=== PATIENT | female | born 1955 | race Caucasian/White ===

== ENCOUNTER 2020-12-18 20:38 | Emergency (ER) | payer MEDICAID ==
[~2020-12-18] VITALS: Ht 165.1 cm; Wt 108.9 kg
--- NOTE | 2020-12-18 20:55 | NUR ---
PT SENT FROM URGENT CARE C/O R LEG PAIN, BRUISING AND SWELLING. PT HAD A FALL LAST 12/07/19. PT AAOX4, RESPIRATIONS EVEN AND UNLABORED ON RA W/ NAD NOTED. PT CONNECTED TO THE MONITOR AND POX
--- NOTE | 2020-12-18 21:00 | NUR ---
DR SANTANA AT BEDSIDE EVAL
--- NOTE | 2020-12-18 21:05 | NUR ---
US TECH AT BED SIDE
--- NOTE | 2020-12-18 21:10 | NUR ---
RECTANGULAR TANK COOPER AT BEDSIDE FOR BLOOD DRAW
[2020-12-18] MEDS ORDERED: CLONIDINE HCL 0.1 MG TABLET ONE (21:29)
[2020-12-18] MEDS: CLONIDINE HCL 0.1 MG TABLET PO ONE (21:33)
[2020-12-18 21:37] LABS: BASOPHILS # (AUTO) 0.1 /CMM (0.0-0.2); BASOPHILS % (AUTO) 1.2 % (0.0-2.0); EOSINOPHILS % (AUTO) 2.6 % (0.0-6.0); HEMATOCRIT 37 % (33-45); HEMOGLOBIN 12.5 g/dL (11.5-14.8); LYMPHOCYTES # (AUTO) 2.5 /CMM (0.8-4.8); LYMPHOCYTES % (AUTO) 25.1 % (20.0-44.0); MEAN CORPUSCULAR HGB CONC 34 g/dl (31.0-36.0); MEAN CORPUSCULAR VOLUME 92 fL (82-100); MONOCYTES # (AUTO) 0.8 /CMM (0.1-1.30); MONOCYTES % (AUTO) 7.8 % (2.0-12.0); NEUTROPHILS # (AUTO) 6.3 /CMM (1.8-8.9); NEUTROPHILS % (AUTO) 63.3 % (43.0-81.0); PLATELET COUNT (AUTO) 500 /CMM (150-450); WHITE BLOOD COUNT (AUTO) 9.9 K/uL (4.3-11.0)
[2020-12-18 21:48] LABS: CALCIUM, SERUM 9.3 mg/dL (8.5-10.1); CARBON DIOXIDE 26 mmol/L (21-32); CHLORIDE 105 mmol/L (98-107); CREATININE 0.8 mg/dL (0.6-1.3); GLUCOSE 119 mg/dL (74-106); POTASSIUM 4.7 mmol/L (3.5-5.1); SODIUM SERUM 139 mmol/L (136-145); UREA NITROGEN, BLOOD 25 mg/dL (7-18)
[2020-12-18] MEDS ORDERED: VANCOMYCIN 1.5 GM in IV D5W 500 ML IV ONE (22:00)
[2020-12-18] MEDS ORDERED: VANCOMYCIN 500 MG VIAL ONE ×2 (22:06)
[2020-12-18 22:09] LABS: CREATINE KINASE, TOTAL 92 U/L (26-192)
[2020-12-18] MEDS ORDERED: LIDOCAINE /MPF 1% VIAL 5 ML VIAL ONE (22:36)
[2020-12-18] MEDS ORDERED: CEFTRIAXONE 1 G VIAL ONE (22:37)
[2020-12-18] MEDS ORDERED: CEPH-570 PO (22:40)
[2020-12-18] MEDS ORDERED: AMLO5TAB4 PO (22:40)
[2020-12-18] MEDS: CEFTRIAXONE 1 G VIAL IM ONE (22:57)
--- NOTE | 2020-12-18 22:57 | NUR ---
Patient discharged to home in stable condition. Written and verbal after care instructions given. Patient verbalizes understanding of instruction.pt. ambulatory with a steady gait
[2020-12-18 22:59] VITALS: BP 163/93
== END 2020-12-18 23:00 | disposition home or self-care (01) ==
LOC: ER 20:43
DX: S80.11XA Contusion of right lower leg, initial encounter (principal); L03.115 Cellulitis of right lower limb; R22.41 Localized swelling, mass and lump, right lower limb; I10 Essential (primary) hypertension; E03.9 Hypothyroidism, unspecified; F32.9 Major depressive disorder, single episode, unspecified; Z98.890 Other specified postprocedural states; Z60.2 Problems related to living alone; Z79.899 Other long term (current) drug therapy; W01.0XXA Fall on same level from slipping, tripping and stumbling without subsequent striking against object, initial encounter; Y93.89 Activity, other specified; Y92.89 Other specified places as the place of occurrence of the external cause; Y99.8 Other external cause status
CPT/HCPCS: 36415; 71045; 73590; 80048; 82550; 84484; 85025; 85610; 85730; 93005; 93971; 96372; 99285; J0696; J3370 ×2; J3490

== ENCOUNTER 2022-02-11 10:18 | Inpatient (IN) | payer OTHER ==
[~2022-02-11] VITALS: Ht 152.4 cm; Wt 112.0 kg
[~2022-02-11 10:18] MED LIST: AMLO5TAB4 PO; CEPH-570 PO
--- NOTE | 2022-02-11 10:28 | NUR ---
ISABEL Powell FROM [facility] C/O LOWER BACK PAIN. HAD BACK SURGERY LAST JANUARY 25. "THEY DISCHARGED ME TOO EARLY, PAIN IS NOT BETTER". DX: SPINAL STENOSIS. TO ER BED 11, HOOKED TO MONITOR, CHANGED TO HOSP GOWN, WARM BLANKET PROVIDED. AWAITING MD CRANDALL
--- NOTE | 2022-02-11 11:32 | NUR ---
DR CRAWLEY AT BEDSIDE
[2022-02-11] MEDS ORDERED: HYDROMORPHONE 1 MG/1 ML DISP.SYRIN ONE (11:41)
[2022-02-11] MEDS ORDERED: HYDROMORPHONE 1 MG/1 ML DISP.SYRIN IV ONE (12:00)
--- NOTE | 2022-02-11 12:00 | NUR ---
MOVE SHEET SUBMITTED AND CALLED FOR BED.
[2022-02-11] MEDS ORDERED: ASCO500C17 PO (12:13)
[2022-02-11] MEDS ORDERED: PUMP300C PO (12:13)
[2022-02-11] MEDS ORDERED: SENN-175 PO (12:13)
[2022-02-11] MEDS ORDERED: ASPI-1169 PO (12:13)
[2022-02-11] MEDS ORDERED: POLY17PO4 PO (12:13)
[2022-02-11] MEDS ORDERED: TIZA4TAB5 PO (12:13)
[2022-02-11] MEDS ORDERED: HYDR4TAB4 PO (12:13)
[2022-02-11] MEDS ORDERED: DOCU-141 PO (12:13)
[2022-02-11] MEDS ORDERED: METH-647 PO (12:13)
[2022-02-11] MEDS ORDERED: HYDR12.55 PO (12:13)
[2022-02-11] MEDS ORDERED: MORP15TA60 PO (12:13)
[2022-02-11] MEDS ORDERED: ZOLP5TAB2 PO (12:13)
[2022-02-11] MEDS ORDERED: CHOL200013 PO (12:13)
[2022-02-11] MEDS ORDERED: FERR325T23 PO (12:13)
[2022-02-11] MEDS ORDERED: CELE100C PO (12:13)
[2022-02-11] MEDS ORDERED: VOLTAREN GEL TD (12:13)
[2022-02-11 12:21] LABS: BASOPHILS # (AUTO) 0.1 K/uL (0.0-0.2); EOSINOPHILS % (AUTO) 1.2 % (0.0-6.0); HEMATOCRIT 34 % (33-45); HEMOGLOBIN 11.5 g/dL (11.5-14.8); LYMPHOCYTES # (AUTO) 3.7 K/uL (0.8-4.8); LYMPHOCYTES % (AUTO) 31.8 % (20.0-44.0); MEAN CORPUSCULAR HGB CONC 34 g/dl (31.0-36.0); MEAN CORPUSCULAR VOLUME 90 fL (82-100); MONOCYTES # (AUTO) 1.1 K/uL (0.1-1.30); MONOCYTES % (AUTO) 9.8 % (2.0-12.0); NEUTROPHILS # (AUTO) 6.5 K/uL (1.8-8.9); NEUTROPHILS % (AUTO) 56.2 % (43.0-81.0); PLATELET COUNT (AUTO) 849 K/uL (150-450); RED BLOOD CELL COUNT(AUTO) 3.79 MIL/uL (4.0-5.2); WHITE BLOOD COUNT (AUTO) 11.6 K/uL (4.3-11.0)
[2022-02-11 12:36] LABS: CALCIUM, SERUM 9.2 mg/dL (8.5-10.1); CREATININE 0.7 mg/dL (0.6-1.3); POTASSIUM 3.6 mmol/L (3.5-5.1)
--- NOTE | 2022-02-11 13:10 | NUR ---
[facility] CALLED [facility].
--- NOTE | 2022-02-11 13:30 | NUR ---
RN NOTE UPON ENTERING ROOM, PATIENT WAS FOUND SITTING ON THE FLOOR. PT STATES SHE WAS LOOKING FOR HER GROUP CONTROLLER THAT WAS PLUGGED IN THE WALL AND SHE SOMEHOW FELL. PT DENIES SHE HIT HER HEAD. NEURO CHECK DONE. SKIN ASSESSMENT DONE. EDUCATED PATIENT TO REMAIN IN BED AND TO USE CALL LIGHT WHEN NEEDED. CHARGE NURSE, ROSA AND DR. MONIQUE MADE AWARE.
--- NOTE | 2022-02-11 13:50 | NUR ---
ROOM 316-1
[2022-02-11] MEDS ORDERED: LORAZEPAM INJ 2 MG/ML VIAL IV ONE (14:00)
[2022-02-11] MEDS ORDERED: LORAZEPAM INJ 2 MG/ML VIAL ONE (14:00)
--- NOTE | 2022-02-11 14:28 | NUR ---
REPORT GIVEN TO RAMIRO WATSON OF [facility]
[2022-02-11] MEDS ORDERED: ACETAMINOPHEN 325 MG TABLET PO PRN (14:30)
[2022-02-11] MEDS ORDERED: ZOLPIDEM TARTRATE 5 MG TABLET PO PRN (14:30)
[2022-02-11] MEDS ORDERED: MAG HYDROX/AL HYDROX/SIMETH 30 ML UDC PO PRN (14:30)
[2022-02-11] MEDS ORDERED: Z GUARD REMEDY 4 OZ OINT TP PRN (14:30)
[2022-02-11] MEDS ORDERED: MAGNESIUM HYDROXIDE 30 ML UDC PO PRN (14:30)
--- NOTE | 2022-02-11 14:30 | NUR ---
MS FLOOR MANAGER NOTES RECEIVED PATIENT FROM ER, REPORT RECEIVED FROM [facility]. PT A/O X 4. NO S/SX OF DISTRESS NOTED. NO SOB. PT C/O OF LEFT LEG PAIN /. PT ON ROOM AIR, TOLERATING WELL. ORIENTED PT TO UNIT, STAFF AND CALL LIGHT. SAFETY MEASURES IN PLACE WITH BED LOCKED AT LOW POSITION, SIDE RAILS UP X 2. CALL LIGHT WITHIN REACH. WILL CONTINUE TO MONITOR PATIENT THROUGHOUT SHIFT.
[2022-02-11 16:00] VITALS: BP 142/67
[2022-02-11] MEDS: METHOCARBAMOL (500MG) 500 MG TABLET PO SCH (18:05)
[2022-02-11] MEDS: MORPHINE SULFATE SR 15 MG TABLET.SA PO SCH (18:05)
[2022-02-11] MEDS: CELECOXIB 100 MG CAPSULE PO SCH (18:05)
[2022-02-11] MEDS: DOCUSATE SODIUM 250 MG CAPSULE PO SCH (18:05)
--- NOTE | 2022-02-11 19:02 | NUR ---
MS RN CLOSING NOTES PT IS BED RESTING COMFORTABLY. PT A/O X 4. NO S/SX OF DISTRESS NOTED. ON ROOM AIR, TOLERATING WELL. NO SOB. NO S/SX OF ACUTE DISTRESS NOTED. IV ACCESS LAC#20 PATENT AND INTACT. SAFETY MEASURES IN PLACE WITH BED LOCKED AT LOW POSITION, SIDE RAILS UP X 2. CALL LIGHT WITHIN REACH. WILL ENDORSE CONTINUITY OF CARE TO ONCOMING SHIFT.
[2022-02-11 20:00] VITALS: BP 137/85
[2022-02-11] MEDS: HYDROMORPHONE 1 MG/1 ML DISP.SYRIN IV PRN (20:31)
--- NOTE | 2022-02-11 20:43 | NUR ---
MS/BRET/RN DILAUDID 1 MG IV WAS GIVEN FOR C/O PAIN 06/30. PATIENT ALSO REQUESTED TO HAVE HER DRESSINGS CHANGED. DRESSING AT LOWER BACK AND RIGHT HIP ARE NOT INTACT. REMOVED THE DRESSING, CLEANSED THE HEALING SURGICAL WOUND WITH NS AND COVERED WITH SURGICAL DRESSING. WILL MONITOR PATIENT.
[2022-02-11] MEDS: SENNOSIDES 8.6 MG TABLET PO SCH (21:30)
[2022-02-11] MEDS: TIZANIDINE HCL 4 MG TABLET PO SCH (21:31)
[2022-02-12] MEDS: ZOLPIDEM TARTRATE 5 MG TABLET PO PRN ×2 (00:06→23:41)
--- NOTE | 2022-02-12 02:02 | NUR ---
MS/TELE/RN PATIENT IS SLEEPING AT THIS TIME, APPEAR COMFORTABLE, NO SIGNS OF DISTRESS NOTED, CALL LIGHT IN REACH, WILL CONTINUE TO MONITOR.
[2022-02-12] MEDS: HYDROMORPHONE 1 MG/1 ML DISP.SYRIN IV PRN ×5 (06:44→23:12)
--- NOTE | 2022-02-12 06:50 | NUR ---
MS/TELE/RN PATIENT IS AWAKE, C/O PAIN RIGHT HIP 06/30, MEDICATED WITH DILAUDID 1 MG IVP ORDERED. PATIENT IS AWAKE, ALERT AND ORIENTED, ALL NEEDS ATTENDED AT THIS TIME, WILL CONTINUE TO MONITOR.
--- NOTE | 2022-02-12 07:20 | NUR ---
RN OPENING NOTE- MS RN CLOSING NOTES PT IS IN BED RESTING COMFORTABLY. RECENTLY MEDICATED WITH ANALGESICS FOR CONTINUING BACK PAIN. PT A/O X 4. NO S/SX OF DISTRESS NOTED. ON ROOM AIR, TOLERATING WELL. NO SOB. NO S/SX OF ACUTE DISTRESS NOTED. IV ACCESS LAC#20. SAFETY MEASURES IN PLACE WITH BED LOCKED AT LOW POSITION, SIDE RAILS UP X 2. CALL LIGHT WITHIN REACH. MONITOR / ASSIST.
[2022-02-12 07:30] LABS: BASOPHILS # (AUTO) 0.1 K/uL (0.0-0.2); BASOPHILS % (AUTO) 0.8 % (0.0-2.0); EOSINOPHILS % (AUTO) 3.4 % (0.0-6.0); HEMATOCRIT 31 % (33-45); HEMOGLOBIN 10.5 g/dL (11.5-14.8); LYMPHOCYTES # (AUTO) 3.8 K/uL (0.8-4.8); LYMPHOCYTES % (AUTO) 40.6 % (20.0-44.0); MEAN CORPUSCULAR HGB CONC 34 g/dl (31.0-36.0); MEAN CORPUSCULAR VOLUME 90 fL (82-100); MONOCYTES # (AUTO) 0.8 K/uL (0.1-1.30); MONOCYTES % (AUTO) 8.8 % (2.0-12.0); NEUTROPHILS # (AUTO) 4.3 K/uL (1.8-8.9); NEUTROPHILS % (AUTO) 46.4 % (43.0-81.0); PLATELET COUNT (AUTO) 748 K/uL (150-450); RED BLOOD CELL COUNT(AUTO) 3.43 MIL/uL (4.0-5.2); WHITE BLOOD COUNT (AUTO) 9.3 K/uL (4.3-11.0)
[2022-02-12 08:09] VITALS: BP 120/64
[2022-02-12] MEDS: POLYETHYLENE GLYCOL 3350 17 GM POWD.PACK PO SCH (08:27)
[2022-02-12] MEDS: DOCUSATE SODIUM 250 MG CAPSULE PO SCH ×2 (08:27→16:46)
[2022-02-12] MEDS: AMLODIPINE BESYLATE 5 MG TABLET PO SCH (08:27)
[2022-02-12] MEDS: ASPIRIN 81 MG TAB.CHEW PO SCH (08:27)
[2022-02-12] MEDS: FERROUS SULFATE (325 MG) 325 MG/TAB TABLET PO SCH (08:27)
[2022-02-12] MEDS: METHOCARBAMOL (500MG) 500 MG TABLET PO SCH ×3 (08:28→16:46)
[2022-02-12] MEDS: HYDROCHLOROTHIAZIDE 25 MG TABLET PO SCH (08:28)
[2022-02-12] MEDS: CELECOXIB 100 MG CAPSULE PO SCH ×2 (08:28→16:46)
[2022-02-12] MEDS: MORPHINE SULFATE SR 15 MG TABLET.SA PO SCH ×2 (08:28→16:45)
[2022-02-12 08:46] LABS: CREATININE 0.7 mg/dL (0.6-1.3); MAGNESIUM 2.6 mg/dL (1.8-2.4); PHOSPHORUS 4.6 mg/dL (2.5-4.9); POTASSIUM 3.7 mmol/L (3.5-5.1)
[2022-02-12] MEDS ORDERED: Medication Not On Formulary EA (Hydrochlorothiazide 12.5 MG) PO SCH (09:00)
[2022-02-12] MEDS: DICLOFENAC SODIUM 25 MG TABLET.DR PO SCH ×2 (12:30→16:45)
[2022-02-12 15:47] VITALS: BP 117/72
--- NOTE | 2022-02-12 18:34 | NUR ---
RN CLOSING NOTE- PT IS IN BED RESTING THOUGH PERIODS OF PAIN TO LOWER BACK AND HIPS. ANALGESICS FOR CONTINUING BACK PAIN. PAIN MD SAW PT AND CHANGED RX. PT A/O X 4. NO S/SX OF DISTRESS NOTED. ON ROOM AIR, TOLERATING WELL. NO SOB. NO S/SX OF ACUTE DISTRESS NOTED. IV ACCESS LAC#20. BSC IN USE AT BEDSIDE. SAFETY MEASURES IN PLACE WITH BED LOCKED AT LOW POSITION, SIDE RAILS UP X 2. CALL LIGHT WITHIN REACH. MONITOR / ASSIST.
--- NOTE | 2022-02-12 19:35 | NUR ---
MSRN FULLY AWAKE AND ORIENTED. VERY PLEASANT LADY. PAIN MANAGEMENT DISCUSSED WITH PATIENT, WELL UNDERSTOOD. ALLL NEEDS ATTENDED. REMINDED TO CALL STAFF FOR ANY ASSISTANCE/DISCOMFORTS, SAFETY PRECAUTION EMPHASIZED. CONTINUED.
--- NOTE | 2022-02-12 20:00 | NUR ---
MSRN VERBALIZES BACK AND HIP PAIN DILAUDED 1MG IVP ADMINISTERED, BEDREST FOR NOW INSTRUCTED.
[2022-02-12 20:05] VITALS: BP 131/79
--- NOTE | 2022-02-12 20:30 | NUR ---
MSRN ASSESSED PAIN LEVEL STATED TOLERABLE FOR NOW BRANDON WHEN NOT MOVING. CALL LIGHT WITHIN REACH. TO CONTINUE
[2022-02-12] MEDS: SENNOSIDES 8.6 MG TABLET PO SCH (21:19)
[2022-02-12] MEDS: oxyCODONE IR immediate release 5 MG PO PRN (21:19)
[2022-02-12] MEDS: TIZANIDINE HCL 4 MG TABLET PO SCH (21:19)
--- NOTE | 2022-02-12 21:20 | NUR ---
MSRN VERBALIZES BACK AND HIP PAIN INCREASING, AGREED TO TAKE OXY IR 5 MG ORDERED. OTHER DUE MEDS ADMINISTERED. ALL NEEDS MADE.
--- NOTE | 2022-02-13 06:09 | NUR ---
MSRN SLEPT WELL, KEPT COMFORTABLE. CLOSELY WATCHED
--- NOTE | 2022-02-13 08:00 | NUR ---
RN OPENING NOTE PATIENT IN BED RESTING AWAKE, A/OX4, NO S/S OF PAIN NOTED AT THIS TIME. ON ROOM AIR, NO DISTRESS OR SHORTNESS OF BREATH NOTED. IV ACCESS R AC #20, INTACT, PATENT AND FLUSHING WELL. FALL AND SAFETY MEASURES IN PLACE, BED ALARM ON. BED IN LOW AND LOCK POSITION, CALL LIGHT AND TABLE WITHIN EASY REACH, SIDE RAILS UP X2. WILL CONTINUE TO MONITOR.
[2022-02-13] MEDS: HYDROMORPHONE 1 MG/1 ML DISP.SYRIN IV PRN ×4 (08:28→21:17)
[2022-02-13] MEDS: DOCUSATE SODIUM 250 MG CAPSULE PO SCH ×2 (08:29→16:41)
[2022-02-13] MEDS: FERROUS SULFATE (325 MG) 325 MG/TAB TABLET PO SCH (08:29)
[2022-02-13] MEDS: POLYETHYLENE GLYCOL 3350 17 GM POWD.PACK PO SCH (08:29)
[2022-02-13] MEDS: ASPIRIN 81 MG TAB.CHEW PO SCH (08:29)
[2022-02-13] MEDS: GABAPENTIN 300 MG CAPSULE PO SCH ×2 (08:30→16:41)
[2022-02-13] MEDS: HYDROCHLOROTHIAZIDE 25 MG TABLET PO SCH (08:31)
[2022-02-13] MEDS: AMLODIPINE BESYLATE 5 MG TABLET PO SCH (08:31)
[2022-02-13] MEDS: CELECOXIB 100 MG CAPSULE PO SCH ×2 (08:31→16:41)
[2022-02-13] MEDS: METHOCARBAMOL (500MG) 500 MG TABLET PO SCH ×3 (08:32→16:41)
[2022-02-13 08:44] VITALS: BP 121/74
[2022-02-13] MEDS: oxyCODONE IR immediate release 5 MG PO PRN ×2 (10:43→17:59)
[2022-02-13] MEDS: ONDANSETRON HCL/PF 4 MG/2 ML VIAL IVP PRN ×2 (10:43→21:41)
[2022-02-13 16:27] VITALS: BP 117/77
--- NOTE | 2022-02-13 19:10 | NUR ---
RN CLOSING NOTE PATIENT IN BED RESTING AWAKE, A/OX4, NO S/S OF PAIN NOTED AT THIS TIME, PAIN MEDICATION GIVEN DURING THE SHIFT. ON ROOM AIR, NO DISTRESS OR SHORTNESS OF BREATH NOTED. IV ACCESS R AC #20, INTACT, PATENT AND FLUSHING WELL. ALL SCHEDULED MEDS ADMINISTERED. FALL AND SAFETY MEASURES IN PLACE, BED ALARM ON. BED IN LOW AND LOCK POSITION, CALL LIGHT AND TABLE WITHIN EASY REACH, SIDE RAILS UP X2. WILL ENDORSE TO CLINICAL SERVICES CONSULTANT.
[2022-02-13 20:00] VITALS: BP 124/75
--- NOTE | 2022-02-13 20:00 | NUR ---
rn opening note Patient is A&Ox4, comfortable in bed currently. Able to make needs known. RAC #20G IV intact and patent. No needs at this time but patient does request that pain be managed promptly throughout shift. Will continue to monitor pt.
[2022-02-13] MEDS: SENNOSIDES 8.6 MG TABLET PO SCH (21:17)
[2022-02-13] MEDS: TIZANIDINE HCL 4 MG TABLET PO SCH (21:17)
[2022-02-13] MEDS: LORAZEPAM 1 MG TABLET PO PRN (22:18)
[2022-02-14] MEDS: HYDROMORPHONE 1 MG/1 ML DISP.SYRIN IV PRN ×5 (05:37→22:34)
--- NOTE | 2022-02-14 06:06 | NUR ---
RN CLOSING NOTES Patient is A&Ox4 overnight. Slept well after PRN ativan admin. When waken pt. c/o again of R hip and lower back PRN dilaudid given as per order. Able to walk to bathroom with walker +staff assist +back brace. RAC #20G still intact and patent. Currently awake and alert resting in bed on ipad.
[2022-02-14] MEDS: oxyCODONE IR immediate release 5 MG PO PRN ×3 (06:49→19:56)
[2022-02-14] MEDS: POLYETHYLENE GLYCOL 3350 17 GM POWD.PACK PO SCH (08:20)
[2022-02-14] MEDS: ASPIRIN 81 MG TAB.CHEW PO SCH (08:21)
[2022-02-14] MEDS: FERROUS SULFATE (325 MG) 325 MG/TAB TABLET PO SCH (08:21)
[2022-02-14] MEDS: DOCUSATE SODIUM 250 MG CAPSULE PO SCH ×2 (08:21→18:09)
[2022-02-14] MEDS: GABAPENTIN 300 MG CAPSULE PO SCH ×2 (08:21→18:08)
[2022-02-14] MEDS: METHOCARBAMOL (500MG) 500 MG TABLET PO SCH ×3 (08:22→18:08)
[2022-02-14] MEDS: CELECOXIB 100 MG CAPSULE PO SCH ×2 (08:23→18:08)
[2022-02-14] MEDS: AMLODIPINE BESYLATE 5 MG TABLET PO SCH (08:23)
[2022-02-14] MEDS: HYDROCHLOROTHIAZIDE 25 MG TABLET PO SCH (08:25)
[2022-02-14 16:00] VITALS: BP 113/63
--- NOTE | 2022-02-14 19:42 | NUR ---
RN CLOSING NOTE PATIENT IN BED RESTING AWAKE, A/OX4, NO S/S OF PAIN NOTED AT THIS TIME, PAIN MEDICATION GIVEN DURING THE SHIFT. ON ROOM AIR, NO DISTRESS OR SHORTNESS OF BREATH NOTED. IV ACCESS L AC #20, INTACT, PATENT AND FLUSHING WELL. ALL SCHEDULED MEDS ADMINISTERED. FALL AND SAFETY MEASURES IN PLACE, BED ALARM ON. BED IN LOW AND LOCK POSITION, CALL LIGHT AND TABLE WITHIN EASY REACH, SIDE RAILS UP X2. WILL ENDORSE TO SUPERVISOR FINAL.
[2022-02-14 20:00] VITALS: BP 137/63
[2022-02-14] MEDS: SENNOSIDES 8.6 MG TABLET PO SCH (21:03)
[2022-02-14] MEDS: TIZANIDINE HCL 4 MG TABLET PO SCH (21:03)
[2022-02-15] MEDS: ZOLPIDEM TARTRATE 5 MG TABLET PO PRN ×2 (00:16→21:07)
[2022-02-15] MEDS: LORAZEPAM 1 MG TABLET PO PRN (02:31)
[2022-02-15] MEDS: HYDROMORPHONE 1 MG/1 ML DISP.SYRIN IV PRN ×5 (05:02→19:43)
--- NOTE | 2022-02-15 06:17 | NUR ---
RN CLOSING NOTE Patient has been A&Ox4 overnight. Sleeping intermittently. Pain managed with PRN pain meds. Up and walking short distances with walker, back brace and 1 person assist. Overall stable. Currently awake resting in bed on iPad.
--- NOTE | 2022-02-15 07:31 | NUR ---
RN OPENING NOTE PATIENT RECEIVED IN BED SLEEPING COMFORTABLE WITH HOB ELEVATED.ON ROOM AIR VIVIAN,WELL NO S/S SOB/DISTRESS NOTED. IV ACCESS R AC #20, INTACT, PATENT AND FLUSHING WELL. FALL AND SAFETY MEASURES IN PLACE.BED ALARM ON. BED IN LOW AND LOCK POSITION, CALL LIGHT WITHIN REACH.SIDE RAILS UP X2. WILL CONTINUE TO MONITOR.
[2022-02-15 08:00] VITALS: BP 106/66
[2022-02-15] MEDS: POLYETHYLENE GLYCOL 3350 17 GM POWD.PACK PO SCH (08:23)
[2022-02-15] MEDS: AMLODIPINE BESYLATE 5 MG TABLET PO SCH (08:24)
[2022-02-15] MEDS: DOCUSATE SODIUM 250 MG CAPSULE PO SCH ×2 (08:24→16:10)
[2022-02-15] MEDS: CELECOXIB 100 MG CAPSULE PO SCH ×2 (08:25→16:12)
[2022-02-15] MEDS: ASPIRIN 81 MG TAB.CHEW PO SCH (08:25)
[2022-02-15] MEDS: GABAPENTIN 300 MG CAPSULE PO SCH ×2 (08:27→16:12)
[2022-02-15] MEDS: METHOCARBAMOL (500MG) 500 MG TABLET PO SCH ×3 (08:27→16:12)
[2022-02-15] MEDS: HYDROCHLOROTHIAZIDE 25 MG TABLET PO SCH (08:27)
[2022-02-15] MEDS: FERROUS SULFATE (325 MG) 325 MG/TAB TABLET PO SCH (08:27)
--- NOTE | 2022-02-15 10:02 | NUR ---
RN NOTE IV DISLODGED, MD NOTIFIED GAVE NEW ORDER FOR MIDLINE INSERTION, MIDLINE PLACE 18 GAUGE LEFT UPPER ARM PATENT AND INTACT
[2022-02-15] MEDS: oxyCODONE IR immediate release 5 MG PO PRN ×2 (11:17→18:11)
[2022-02-15 16:00] VITALS: BP 137/74
--- NOTE | 2022-02-15 16:35 | NUR ---
SS Note: SW met with pt. to provide IHSS and Disability information.
--- NOTE | 2022-02-15 18:29 | NUR ---
RN CLOSING NOTE PATIENT IN BED RESTING AWAKE, A/OX4, NO S/S OF PAIN NOTED AT THIS TIME, PAIN MEDICATION GIVEN DURING THE SHIFT, VITALS MAINTAINED WNL. PATIENT IS BREATHING EVENLY AND NONLABORED ON ROOM AIR, NO DISTRESS OR SHORTNESS OF BREATH NOTED. IV ACCESS L AC #20, INTACT, PATENT AND FLUSHING WELL. ALL MEDICATIONS GIVEN ORDERED. FALL AND SAFETY MEASURES IN PLACE, BED ALARM ON. BED IN LOW AND LOCK POSITION, CALL LIGHT AND TABLE WITHIN EASY REACH, SIDE RAILS UP X2. WILL ENDORSE TO MANAGER [facility]EL[facility].
--- NOTE | 2022-02-15 19:30 | NUR ---
MS RN OPENING NOTES PATIENT RECEIVED RESTING IN BED, AWAKE, A/OX4, BREATHING EVEN AND UNLABORED; NO SOB NOTED AT THIS TIME; PATIENT TOLERATING ROOM AIR WELL; PATIENT REPORTING 9/10 PAIN, VS WNL; PATIENT ABLE TO MAKE NEEDS KNOWN; PATIENT AMBULATORY WITH ASSIST; PATIENT HAS MARY MIDLINE #18G INTACT AND PATENT, FLUSHING WELL; NO S/S OF REDNESS OR INFILTRATION NOTED; SAFETY PRECAUTIONS IMPLEMENTED; BED LOCKED IN LOW POSITION; SIDE RAILS UP X2; CALL LIGHT WITHIN REACH; WILL CONT TO MONITOR
[2022-02-15 20:00] VITALS: BP 147/86
[2022-02-15] MEDS: TIZANIDINE HCL 4 MG TABLET PO SCH (21:06)
[2022-02-15] MEDS: SENNOSIDES 8.6 MG TABLET PO SCH (21:07)
[2022-02-16] MEDS: HYDROMORPHONE 1 MG/1 ML DISP.SYRIN IV PRN ×5 (00:58→15:27)
--- NOTE | 2022-02-16 06:43 | NUR ---
MS RN CLOSING NOTES PATIENT RESTING IN BED, AWAKE, A/OX4, BREATHING EVEN AND UNLABORED; NO SOB NOTED AT THIS TIME; PATIENT TOLERATING ROOM AIR WELL; PATIENT ABLE TO MAKE NEEDS KNOWN; PATIENT AMBULATORY WITH ASSIST; PATIENT HAS MARY MIDLINE #18G INTACT AND PATENT, FLUSHING WELL; NO S/S OF REDNESS OR INFILTRATION NOTED; ALL NEEDS RENDERED; PATIENT ACCUSED STAFF OF NOT PROVIDING FULL DOSAGE OF PAIN MEDICATION. BECAUSE "IT DOESN'T HAVE THE SAME EFFECT THE PREVIOUS DOSING", PATIENT WAS INFORMED MEDICATION WAS ADMINISTRATED PER ORDER; PATIENT STILL UNSATISFIED, PATIENT REQUESTED ATIVAN, PATIENT WAS EDUCATED AND INFORMED ON HOSPITAL POLICY; ALSO UNABLE TO GIVE ATIVE AT THIS TIME, DUE TO PREVIOUSLY KLONOPIN FOR PATIENT. SAFETY PRECAUTIONS IMPLEMENTED; BED LOCKED IN LOW POSITION; SIDE RAILS UP X2; CALL LIGHT WITHIN REACH; WILL ENDORSE ROBERTO CARLOS TO ONCOMING SHIFT
--- NOTE | 2022-02-16 07:25 | NUR ---
RN OPENING NOTE PT RESTING IN BED, ASLEEP THOUGH EASILY AWAKENED, A/OX4, BREATHING EVEN AND NON-LABORED; NO SOB NOTED AT THIS TIME; PATIENT TOLERATING ROOM AIR WELL, VS WNL; PATIENT ABLE TO MAKE NEEDS KNOWN; PATIENT AMBULATORY WITH ASSIST; PATIENT NOW HAS MARY MIDLINE #18G NO S/S OF REDNESS OR INFILTRATION NOTED; SAFETY PRECAUTIONS IMPLEMENTED; BED LOCKED IN LOW POSITION; SIDE RAILS UP X2; CALL LIGHT WITHIN REACH; WILL CONT TO MONITOR / ASSIST
[2022-02-16 08:00] VITALS: BP 114/66
[2022-02-16] MEDS: AMLODIPINE BESYLATE 5 MG TABLET PO SCH (09:00)
[2022-02-16] MEDS: HYDROCHLOROTHIAZIDE 25 MG TABLET PO SCH (09:00)
[2022-02-16] MEDS: POLYETHYLENE GLYCOL 3350 17 GM POWD.PACK PO SCH (09:09)
[2022-02-16] MEDS: FERROUS SULFATE (325 MG) 325 MG/TAB TABLET PO SCH (09:09)
[2022-02-16] MEDS: ASPIRIN 81 MG TAB.CHEW PO SCH (09:09)
[2022-02-16] MEDS: GABAPENTIN 300 MG CAPSULE PO SCH ×2 (09:09→16:26)
[2022-02-16] MEDS: METHOCARBAMOL (500MG) 500 MG TABLET PO SCH ×3 (09:11→16:26)
[2022-02-16] MEDS: CELECOXIB 100 MG CAPSULE PO SCH ×2 (09:11→16:26)
[2022-02-16] MEDS: DOCUSATE SODIUM 250 MG CAPSULE PO SCH ×2 (09:11→16:26)
[2022-02-16] MEDS ORDERED: OXYC5CAP18 PO (09:46)
[2022-02-16] MEDS ORDERED: GABA-536 PO (10:25)
[2022-02-16] MEDS: oxyCODONE IR immediate release 5 MG PO PRN (10:33)
[2022-02-16 16:00] VITALS: BP 145/83
--- NOTE | 2022-02-16 17:15 | NUR ---
RN NOTE- PT DISCHARGED AT THIS TIME TO HOME IN CARE OF FRIEND. VS STABLE. DC INSTRUCTIONS GIVEN AND UNDERSTOOD, PRESCRIPTION GIVEN TO PT, REVIEWED ORDERS AND FOLLOW UP CARE. ID [id number] REMOVED, MIDLINE REMOVED FROM MARY. BELONGINGS GATHERED AND PT ESCORTED OFF UNIT TO PRIVATE VEHICLE W FRIEND AT THIS TIME.
[2022-02-17] MEDS ORDERED: ZOLP5TAB2 PO (15:23)
[2022-02-17] MEDS ORDERED: TIZA4TAB5 PO (15:23)
[2022-02-17] MEDS ORDERED: OXYC10TA49 PO (15:23)
[2022-02-17] MEDS ORDERED: GABA-536 PO (15:23)
== END 2022-02-16 17:10 | disposition home health service (06) | DRG 948 ==
LOC: ER 10:23 → MED 14:23
PROVIDERS: ADMIT Internal Medicine; ATTEND Internal Medicine
PROC: 05HC33Z Insertion of Infusion Device into Left Basilic Vein, Percutaneous Approach (ICD-10-PCS; principal; 2022-02-15)
DX: G89.18 Other acute postprocedural pain (principal); Z68.42 Body mass index [BMI] 45.0-49.9, adult; E03.9 Hypothyroidism, unspecified; Z79.82 Long term (current) use of aspirin; Z20.822 Contact with and (suspected) exposure to COVID-19; E66.01 Morbid (severe) obesity due to excess calories; R73.03 Prediabetes; I10 Essential (primary) hypertension; F32.9 Major depressive disorder, single episode, unspecified; Z86.73 Personal history of transient ischemic attack (TIA), and cerebral infarction without residual deficits; Z98.1 Arthrodesis status; F43.21 Adjustment disorder with depressed mood; M47.26 Other spondylosis with radiculopathy, lumbar region; G89.4 Chronic pain syndrome; Z88.8 Allergy status to other drugs, medicaments and biological substances; Z79.899 Other long term (current) drug therapy; M19.90 Unspecified osteoarthritis, unspecified site
CPT/HCPCS: 36410; 36415; 80048-TC; 83735-TC; 84100-TC; 85025-TC; 87081-TC; 97110-TC; 97116-TC; 97530-TC; C9803; G0378; J1170; J2060; J2405

== ENCOUNTER 2022-02-17 10:45 | Emergency (ER) | payer OTHER ==
[~2022-02-17] VITALS: Ht 165.1 cm; Wt 104.3 kg
[~2022-02-17 10:45] MED LIST changes: +ASCO500C17 PO; +ASPI-1169 PO; +CELE100C PO; -CEPH-570 PO; +CHOL200013 PO; +DOCU-141 PO; +FERR325T23 PO; +GABA-536 PO; +HYDR12.55 PO; +METH-647 PO; +OXYC5CAP18 PO; +POLY17PO4 PO; +PUMP300C PO; +SENN-175 PO; +TIZA4TAB5 PO; +VOLTAREN GEL TD; +ZOLP5TAB2 PO
--- NOTE | 2022-02-17 11:10 | NUR ---
LOWER BACK AND RLE PAIN SINCE YESTERDAY. D/C YESTERDAY S/P BACK SURGERY. PLACED ON BED IN PAIN 08/30
--- NOTE | 2022-02-17 11:10 | NUR ---
Note warren in EDM - 02/17/22 at 1122 by MARBIN LOWER BACK AND RLE PAIN SINCE YESTERDAY. D/C YESTERDAY S/P BACK SURGERY. PLACE ON BED. IN PAIN.
--- NOTE | 2022-02-17 12:03 | NUR ---
URINE COLLECTED AND SENT TO LAB
[2022-02-17] MEDS ORDERED: GABAPENTIN 100 MG CAPSULE PO ONE (12:30)
[2022-02-17] MEDS ORDERED: HYDROMORPHONE 1 MG/1 ML DISP.SYRIN IV ONE (12:30)
[2022-02-17] MEDS ORDERED: METHOCARBAMOL (500MG) 500 MG TABLET PO ONE (12:30)
[2022-02-17] MEDS ORDERED: HYDROMORPHONE 1 MG/1 ML DISP.SYRIN ONE (12:41)
[2022-02-17] MEDS ORDERED: GABAPENTIN 300 MG CAPSULE ONE (12:42)
[2022-02-17] MEDS ORDERED: METHOCARBAMOL (500MG) 500 MG TABLET ONE (12:43)
--- NOTE | 2022-02-17 12:54 | NUR ---
COVID SWAB DONE AND SENT TO LAB
[2022-02-17] MEDS ORDERED: TIZA4TAB5 PO (15:23)
[2022-02-17] MEDS ORDERED: GABA-536 PO (15:23)
[2022-02-17] MEDS ORDERED: ZOLP5TAB2 PO (15:23)
[2022-02-17] MEDS ORDERED: OXYC10TA49 PO (15:23)
--- NOTE | 2022-02-17 16:20 | NUR ---
IV removed. Catheter intact and site benign. Pressure and 4x4 applied to site. No bleeding noted.Patient discharged to home in stable condition. Written and verbal after care instructions given. Patient verbalizes understanding of instruction.
[2022-02-17 17:02] VITALS: BP 130/85
== END 2022-02-17 17:04 | disposition home or self-care (01) ==
LOC: ER 10:49
DX: G89.29 Other chronic pain (principal); M54.41 Lumbago with sciatica, right side; E03.9 Hypothyroidism, unspecified; Z20.822 Contact with and (suspected) exposure to COVID-19; Z86.73 Personal history of transient ischemic attack (TIA), and cerebral infarction without residual deficits; Z98.890 Other specified postprocedural states; R32 Unspecified urinary incontinence
CPT/HCPCS: 51702; 87426; 96374; 97166; 99284; C9803; J1170; 97530-TC

== ENCOUNTER 2022-06-30 15:58 | Emergency (ER) | payer OTHER ==
[~2022-06-30] VITALS: Ht 165.1 cm; Wt 100.7 kg
[~2022-06-30 15:58] MED LIST changes: +OXYC10TA49 PO
--- NOTE | 2022-06-30 19:33 | NUR ---
URINE SAMPLE COLLECTED AND SENT TO LAB
--- NOTE | 2022-06-30 20:14 | NUR ---
BIBS C/O R FLANK PAIN x 4DAYS WELL [place]. WORSE LAST NIGHT. STATES SHE WAS REFERRED BY [facility]RGENT CAREFOR POSSIBLE KIDNEY STONES. PT AWAKE AND ALERT X4 BREATHING EVEN AND UNLABORED. ALL V/S WNL.
--- NOTE | 2022-06-30 20:19 | NUR ---
20G IV LINE AT [facility]. BLOOD DRAWN AND SENT TO LAB
[2022-06-30] MEDS ORDERED: ONDANSETRON HCL/PF 4 MG/2 ML VIAL ONE (20:20)
[2022-06-30] MEDS ORDERED: MORPHINE SULFATE INJ 4 MG/ML DISP.SYRIN ONE (20:20)
[2022-06-30] MEDS ORDERED: IV NS 0.9% 1,000 ML BAG IV ONE (20:30)
[2022-06-30] MEDS ORDERED: ONDANSETRON HCL/PF 4 MG/2 ML VIAL IVP ONE (20:30)
[2022-06-30] MEDS ORDERED: MORPHINE SULFATE INJ 2 MG/ML DISP.SYRIN IV ONE (20:30)
--- NOTE | 2022-06-30 20:32 | NUR ---
PT TRANSPORTED TO CT [facility]IA [facility]
[2022-06-30 20:40] LABS: BASOPHILS # (AUTO) 0.1 K/uL (0.0-0.2); BASOPHILS % (AUTO) 0.6 % (0.0-2.0); EOSINOPHILS % (AUTO) 0.5 % (0.0-6.0); HEMATOCRIT 42 % (33-45); HEMOGLOBIN 14.3 g/dL (11.5-14.8); LYMPHOCYTES # (AUTO) 4.3 K/uL (0.8-4.8); LYMPHOCYTES % (AUTO) 25.6 % (20.0-44.0); MEAN CORPUSCULAR HGB CONC 34 g/dl (31.0-36.0); MEAN CORPUSCULAR VOLUME 90 fL (82-100); MONOCYTES # (AUTO) 1.2 K/uL (0.1-1.30); MONOCYTES % (AUTO) 7.4 % (2.0-12.0); NEUTROPHILS % (AUTO) 65.9 % (43.0-81.0); PLATELET COUNT (AUTO) 446 K/uL (150-450); RED BLOOD CELL COUNT(AUTO) 4.69 MIL/uL (4.0-5.2); WHITE BLOOD COUNT (AUTO) 16.7 K/uL (4.3-11.0)
--- NOTE | 2022-06-30 20:40 | NUR ---
PT RETURNED FROM CT
[2022-06-30 20:45] LABS: CALCIUM, SERUM 9.7 mg/dL (8.5-10.1); CREATININE 0.7 mg/dL (0.6-1.3); POTASSIUM 3.8 mmol/L (3.5-5.1)
[2022-06-30 20:52] LABS: ALBUMIN 3.8 g/dL (3.4-5.0); BILIRUBIN,DIRECT 0.2 mg/dL (0.0-0.2); BILIRUBIN,TOTAL 1.2 mg/dL (0.2-1.0); TOTAL PROTEIN, SERUM 8.4 g/dL (6.4-8.2)
[2022-06-30 21:10] LABS: BILIRUBIN,URINE NEGATIVE (NEGATIVE); COLOR,URINE YELLOW (YELLOW); LEUKOCYTE ESTERASE ,URINE SMALL (NEGATIVE); NITRITE, URINE POSITIVE (NEGATIVE); PROTEIN,URINE NEGATIVE (NEGATIVE); UGLUCOSE NEGATIVE (NEGATIVE); UROBILINOGEN,URINE 0.2 EU/dL (0.2)
[2022-06-30] MEDS ORDERED: HYDROMORPHONE 1 MG/1 ML DISP.SYRIN ONE (21:22)
[2022-06-30] MEDS ORDERED: HYDROMORPHONE 1 MG/1 ML DISP.SYRIN IM ONE (21:30)
[2022-06-30 21:31] LABS: BACTERIA,URINE 3+ /HPF (None Seen); RBC,URINE 0-2 /HPF (0-2); SQUAMOUS EPITHELIAL CELL,UR 0-2 /HPF (None Seen)
[2022-06-30] MEDS ORDERED: CEPH500T PO ×2 (21:49→22:11)
[2022-06-30] MEDS ORDERED: ACET1TAB23 PO ×2 (21:49→22:11)
[2022-06-30] MEDS ORDERED: CEFTRIAXONE 1GM BAG (ER ONLY) 50 ML IV ONE (21:52)
[2022-06-30] MEDS ORDERED: CEFTRIAXONE 1GM BAG (ER ONLY) 1 GM/50 ML PIGGYBACK IV ONE (22:00)
[2022-07-01 01:34] VITALS: BP 139/88
--- NOTE | 2022-07-01 01:34 | NUR ---
Patient discharged to home in stable condition. Written and verbal after care instructions given. Patient verbalizes understanding of instruction.IV removed. Catheter intact and site benign. Pressure and 4x4 applied to site. No bleeding noted.
== END 2022-07-01 01:35 | disposition home or self-care (01) ==
LOC: ER 16:04
DX: N12 Tubulo-interstitial nephritis, not specified as acute or chronic (principal); E03.9 Hypothyroidism, unspecified; Z98.890 Other specified postprocedural states; Z88.6 Allergy status to analgesic agent; Z60.2 Problems related to living alone; Z79.899 Other long term (current) drug therapy; Z79.82 Long term (current) use of aspirin
CPT/HCPCS: 99285; 74176; 96365; 71045; 96361; 93005; 85025; 80048; 87077; 87086; 80076; 87186; 81001; 36415; 85730; 96372; J2270; J2405; J7030; J0696; J1170

== ENCOUNTER 2023-12-30 14:53 | Emergency (ER) | payer OTHER, MEDICAID ==
[~2023-12-30] VITALS: Ht 165.1 cm; Wt 108.4 kg
[~2023-12-30 14:53] MED LIST changes: +ACET1TAB23 PO; +CEPH500T PO
[2023-12-30] MEDS ORDERED: MECLIZINE HCL 25 MG TABLET ONE (15:19)
[2023-12-30] MEDS: MECLIZINE HCL 25 MG TABLET PO ONE (15:23)
[2023-12-30 15:33] LABS: BASOPHILS # (AUTO) 0.1 K/uL (0.0-0.2); BASOPHILS % (AUTO) 0.9 % (0.0-2.0); EOSINOPHILS # (AUTO) 0.3 K/uL (0.0-0.7); EOSINOPHILS % (AUTO) 2.5 % (0.0-6.0); HEMATOCRIT 44 % (33-45); HEMOGLOBIN 14.8 g/dL (11.5-14.8); LYMPHOCYTES # (AUTO) 2.8 K/uL (0.8-4.8); LYMPHOCYTES % (AUTO) 24.9 % (20.0-44.0); MEAN CORPUSCULAR HEMOGLOBIN 31 PG (26.0-33.0); MEAN CORPUSCULAR HGB CONC 34 g/dl (31.0-36.0); MEAN CORPUSCULAR VOLUME 91 fL (82-100); MONOCYTES # (AUTO) 0.9 K/uL (0.1-1.30); NEUTROPHILS # (AUTO) 7.2 K/uL (1.8-8.9); NEUTROPHILS % (AUTO) 63.7 % (43.0-81.0); PLATELET COUNT (AUTO) 471 K/uL (150-450); RED BLOOD CELL COUNT(AUTO) 4.81 MIL/uL (4.0-5.2); RED CELL DISTRIBUTION WIDTH 13.9 % (11.5-15.0); WHITE BLOOD COUNT (AUTO) 11.3 K/uL (4.3-11.0)
[2023-12-30 15:54] LABS: CALCIUM, SERUM 9.4 mg/dL (8.5-10.1); CARBON DIOXIDE 26 mmol/L (21-32); CHLORIDE 103 mmol/L (98-107); CREATININE 0.8 mg/dL (0.6-1.3); GLUCOSE 157 mg/dL (74-106); SODIUM SERUM 139 mmol/L (136-145); UREA NITROGEN, BLOOD 13 mg/dL (7-18)
[2023-12-30 16:06] LABS: ALANINE AMINOTRANSFERASE 34 U/L (12-78); ALBUMIN 3.4 g/dL (3.4-5.0); ALKALINE PHOSPHATASE 103 U/L (46-116); ASPARTATE AMINOTRANSFERASE 18 U/L (15-37); BILIRUBIN,DIRECT 0.1 mg/dL (0.0-0.2); BILIRUBIN,TOTAL 0.7 mg/dL (0.2-1.0); NT-PRO BNP 17 pg/mL (0-125); POTASSIUM 2.7 mmol/L (3.5-5.1); TOTAL PROTEIN, SERUM 7.9 g/dL (6.4-8.2)
[2023-12-30] MEDS ORDERED: POTASSIUM CHLORIDE 20 MEQ POWDER PACKET ONE (16:18)
[2023-12-30] MEDS: POTASSIUM CHLORIDE 20 MEQ POWDER PACKET PO ONE (16:24)
[2023-12-30] MEDS ORDERED: MECL-159 PO (16:43)
[2023-12-30 17:15] VITALS: BP 144/94; TEMP 97.4; O2SAT 97
== END 2023-12-30 18:17 | disposition home or self-care (01) ==
LOC: ER 14:53
DX: R42 Dizziness and giddiness (principal); G89.29 Other chronic pain; E03.9 Hypothyroidism, unspecified; Z88.8 Allergy status to other drugs, medicaments and biological substances; Z60.2 Problems related to living alone; Z79.899 Other long term (current) drug therapy
CPT/HCPCS: 99285; 70450; 71045; 93005; 85025; 80048; 80076; 36415; 84484; 83880; 82962; J8597